=== PATIENT | female | born 1970 | race American Indian/Alaskan Native ===

== ENCOUNTER 2020-09-15 09:03 | Outpatient (CLI) | payer BC ==
--- NOTE | 2020-09-15 10:11 | Mammography Report ---
DIGITAL SCREENING MAMMOGRAM WITH TOMOSYNTHESIS WITH CAD, 09/15/2020 CLINICAL INFORMATION / INDICATION: Routine Screening Mammography. TECHNIQUE: Digital bilateral 2D and 3D mammography with tomosynthesis was obtained in the craniocaud al and mediolateral oblique projections. Computer-Aided Detection (CAD) analysis was used for interp retation of this study. COMPARISON: 01/21/2019 and 04/17/17. FINDINGS: Breast Density: The breasts are heterogeneously dense, which may obscure small masses. No dominant mass, suspicious calcifications, or architectural distortion in either breast. There are a few benign-appearing calcifications bilaterally. A single right biopsy clip and 2 left bi opsy clips are again noted. No new abnormality is seen. IMPRESSION: No mammographic evidence of malignancy. Follow up recommendation: Routine yearly BI-RADS Category 2: Benign. A "normal" or negative report should not discourage follow up or biopsy of a clinically significant f inding. A written summary of these findings will be mailed to the patient. The patient will be entered into a mammography reporting system which will generate a reminder letter for the patient's next appointmen t at the appropriate interval. The [employer] recommends yearly mammograms starting at age 40 and continuing as l abhi as a woman is in good health. Breast MRI is recommended for women with an approximate 20-25% or greater lifetime risk of breast cancer, including women with a strong family history of breast or ova noreen cancer or who have been treated for Hodgkin's disease. Signer Name: Pantera Bashir MD Signed: 09/15/2020 10:06 AM Workstation Name: [id number]
== END 2020-09-15 09:04 | disposition home or self-care (01) ==
LOC: SPVWC 09:03
PROVIDERS: ATTEND Surgery
DX: Z12.31 Encounter for screening mammogram for malignant neoplasm of breast (principal)
CPT/HCPCS: 77063; 77067

== ENCOUNTER 2021-02-15 06:50 | Inpatient (IN) | payer BC ==
[2021-02-15 08:18] LABS: Basophils # (Auto) 0.1 K/mm3 (0.0-0.1); Basophils % (Auto) 0.7 % (0.0-1.8); Hematocrit 43.1 % (30.3-42.9); Hemoglobin 14.4 gm/dl (10.1-14.3); Mean Corpuscular HGB Conc 34 % (30-34); Mean Corpuscular Volume 93 fl (79-97); Monocytes # (Auto) 0.6 K/mm3 (0.0-0.8); Monocytes % (Auto) 3.7 % (0.0-7.3); Platelet Count 288 K/mm3 (140-440); Red Blood Count 4.61 M/mm3 (3.65-5.03); Red Cell Distribution Width 13.4 % (13.2-15.2)
[2021-02-15 08:36] LABS: Alanine Aminotransferase 16 units/L (7-56); Albumin 5.1 g/dL (3.9-5); Blood Urea Nitrogen 14 mg/dL (7-17); Calcium 9.8 mg/dL (8.4-10.2); Hemolysis Index 24
[2021-02-15 08:38] LABS: BUN/Creatinine Ratio 20
[2021-02-15] MEDS ORDERED: DICYCLOMINE 20 MG TAB PO ONE (08:47)
[2021-02-15] MEDS ORDERED: MORPHINE 4 MG/1 ML INJ IV ONE (08:47)
[2021-02-15] MEDS ORDERED: ONDANSETRON 4 MG/2 ML INJ IV ONE (08:47)
[2021-02-15] MEDS ORDERED: SODIUM CHLORIDE 0.9% 1000 ML 1,000 ML IV ONE (08:47)
[2021-02-15] MEDS ORDERED: PIPERACIL/TAZOBACTA 4.5/NS 100 4.5 GM/100 ML VIAL IV ONE (10:47)
[2021-02-15] MEDS ORDERED: HYDROmorphone 1 MG/1 ML INJ IV ONE ×2 (11:13→12:20)
[2021-02-15 11:27] LABS: Bilirubin,Urine NEG (Negative); Blood,Urine SM (Negative); Color,Urine Yellow (Yellow); Mucus,Urine FEW /HPF; Urobilinogen,Urine < 2.0 mg/dL (<2.0)
[2021-02-15] MEDS ORDERED: ACETAMINOPHEN 325 MG TAB PO PRN ×2 (12:24→12:36)
[2021-02-15] MEDS ORDERED: ALBUTEROL 2.5 MG/3 ML NEBU IH PRN (12:24)
[2021-02-15] MEDS ORDERED: MORPHINE 4 MG/1 ML INJ IV PRN (12:24)
[2021-02-15] MEDS ORDERED: ONDANSETRON 4 MG/2 ML INJ IV PRN (12:24)
[2021-02-15] MEDS: metroNIDAZOLE/NS 500 MG/100 ML 500 MG/100 ML BAG IV SCH ×2 (14:43→22:36)
[2021-02-15] MEDS ORDERED: PHENOL 1.4% 177 ML BOTTLE MM PRN (15:30)
[2021-02-15] MEDS: D5NS W/KCL 20 MEQ 20 MEQ/1,000 ML BAG IV SCH (22:11)
[2021-02-15] MEDS: HEPARIN 5,000 UNIT/1 ML VIAL SUB-Q SCH (22:11)
[2021-02-15] MEDS: MORPHINE 2 MG/1 ML INJ IV PRN (22:12)
[2021-02-15] MEDS: FAMOTIDINE 20 MG/2 ML INJ IV SCH (22:12)
[2021-02-16] MEDS: MORPHINE 2 MG/1 ML INJ IV PRN ×2 (02:20→08:40)
[2021-02-16] MEDS: HEPARIN 5,000 UNIT/1 ML VIAL SUB-Q SCH ×3 (05:24→21:00)
[2021-02-16] MEDS: metroNIDAZOLE/NS 500 MG/100 ML 500 MG/100 ML BAG IV SCH ×3 (05:24→22:12)
[2021-02-16 06:21] LABS: Basophils % (Auto) 0.1 % (0.0-1.8); Hematocrit 41.1 % (30.3-42.9); Hemoglobin 13.7 gm/dl (10.1-14.3); Lymphocytes # (Auto) 1.1 K/mm3 (1.2-5.4); Lymphocytes % (Auto) 6.8 % (13.4-35.0); Mean Corpuscular HGB Conc 33 % (30-34); Mean Corpuscular Volume 93 fl (79-97); Monocytes # (Auto) 1.1 K/mm3 (0.0-0.8); Monocytes % (Auto) 6.8 % (0.0-7.3); Platelet Count 248 K/mm3 (140-440); Red Blood Count 4.43 M/mm3 (3.65-5.03); Red Cell Distribution Width 13.8 % (13.2-15.2)
[2021-02-16 06:44] LABS: Alanine Aminotransferase 11 units/L (7-56); BUN/Creatinine Ratio 15; Blood Urea Nitrogen 12 mg/dL (7-17); Calcium 8.7 mg/dL (8.4-10.2); Hemolysis Index 2
[2021-02-16] MEDS: FAMOTIDINE 20 MG/2 ML INJ IV SCH ×3 (08:42→21:00)
[2021-02-16] MEDS ORDERED: MORPHINE 2 MG/1 ML INJ IV ONE (11:00)
[2021-02-16] MEDS ORDERED: BUPIVACAINE-EPINEPHRINE/PF 0.25%-1:200,000 (30 ML) VIAL INFILTRATI ONE (12:46)
[2021-02-16] MEDS ORDERED: LIDOCAINE (1%) 10 MG/1 ML VIAL 20 ML MDV ONE (12:46)
[2021-02-16] MEDS ORDERED: propofoL 200 MG/20 ML VIAL IV ONE (12:53)
[2021-02-16] MEDS ORDERED: LIDOCAINE MPF (2%) 20 MG/1 ML VIAL 5 ML ONE (12:53)
[2021-02-16] MEDS ORDERED: fentaNYL 100 MCG/2 ML INJ ONE (12:53)
[2021-02-16] MEDS ORDERED: ROCURONIUM 50 MG/5 ML INJ IV ONE (12:53)
[2021-02-16] MEDS ORDERED: SUCCINYLCHOLINE CHLORIDE 200 MG/10 ML INJ MDV ONE (12:53)
[2021-02-16] MEDS ORDERED: SODIUM CHLORIDE 0.9% IRR 1,500 ML BOTTLE IR ONE ×2 (14:15)
[2021-02-16] MEDS ORDERED: LIDOCAINE (1%) 10 MG/1 ML VIAL 20 ML MDV IR ONE (14:16)
[2021-02-16] MEDS ORDERED: BUPIVACAINE/PF (0.25%) 2.5 MG/ML 30 ML VIAL INFILTRATI ONE (14:17)
[2021-02-16] MEDS ORDERED: dexAMETHasone 20 MG/5 ML VIAL ONE (14:23)
[2021-02-16] MEDS ORDERED: ESMOLOL 100 MG/10 ML INJ IV ONE (14:23)
[2021-02-16] MEDS ORDERED: HYDROmorphone 1 MG/1 ML INJ ONE (14:52)
[2021-02-16] MEDS ORDERED: LACTATED RINGERS 2,000 ML ONE (15:23)
[2021-02-16] MEDS ORDERED: SODIUM CHLORIDE 0.9% 1000 ML 2,000 ML ONE (15:23)
[2021-02-16] MEDS ORDERED: GLYCOPYRROLATE 0.4 MG/2 ML INJ ONE (15:45)
[2021-02-16] MEDS ORDERED: NEOSTIGMINE 10MG/10 ML INJ MDV ONE (15:45)
[2021-02-16] MEDS ORDERED: ONDANSETRON 4 MG/2 ML INJ ONE (15:46)
[2021-02-16] MEDS ORDERED: ONDANSETRON 4 MG/2 ML INJ IV PRN (16:14)
[2021-02-16] MEDS ORDERED: HYDROmorphone 1 MG/1 ML INJ IV PRN (16:14)
[2021-02-16] MEDS: KETOROLAC 30 MG/1 ML INJ IV SCH (17:59)
[2021-02-16] MEDS: HYDROmorphone 1 MG/1 ML INJ IV PRN (20:50)
[2021-02-16] MEDS: D5NS W/KCL 20 MEQ 20 MEQ/1,000 ML BAG IV SCH ×2 (20:55→20:57)
[2021-02-17] MEDS: KETOROLAC 30 MG/1 ML INJ IV SCH ×3 (00:11→17:35)
[2021-02-17] MEDS: HYDROmorphone 1 MG/1 ML INJ IV PRN ×3 (04:51→18:14)
[2021-02-17] MEDS: HEPARIN 5,000 UNIT/1 ML VIAL SUB-Q SCH ×3 (05:11→22:18)
[2021-02-17] MEDS: metroNIDAZOLE/NS 500 MG/100 ML 500 MG/100 ML BAG IV SCH ×3 (05:11→22:19)
[2021-02-17] MEDS: D5W IV SCH ×2 (07:05→22:27)
[2021-02-17] MEDS: POTASSIUM CHLORIDE IV SCH ×2 (07:05→22:27)
[2021-02-17] MEDS: NACL IV SCH ×2 (07:05→22:27)
[2021-02-17 07:52] LABS: BUN/Creatinine Ratio 16; Blood Urea Nitrogen 13 mg/dL (7-17); Calcium 7.7 mg/dL (8.4-10.2); Hemolysis Index 0
[2021-02-17] MEDS: FAMOTIDINE 20 MG/2 ML INJ IV SCH ×2 (10:56→22:18)
[2021-02-17] MEDS ORDERED: SODIUM PHOSPHATE 15 MMOL in SODIUM CHLORIDE 0.9% 250ML 250 ML IV ONE (11:30)
[2021-02-17] MEDS ORDERED: BENZOCAINE/MENTHOL LOZENGE MM PRN (12:00)
[2021-02-17] MEDS: MORPHINE 2 MG/1 ML INJ IV PRN (22:19)
[2021-02-18] MEDS: KETOROLAC 30 MG/1 ML INJ IV SCH ×3 (00:27→17:13)
[2021-02-18] MEDS: HYDROmorphone 1 MG/1 ML INJ IV PRN ×3 (02:29→22:28)
[2021-02-18 04:59] LABS: Hematocrit 32.5 % (30.3-42.9); Mean Corpuscular HGB Conc 34 % (30-34); Mean Corpuscular Volume 94 fl (79-97); Platelet Count 184 K/mm3 (140-440); Red Blood Count 3.46 M/mm3 (3.65-5.03); Red Cell Distribution Width 13.4 % (13.2-15.2)
[2021-02-18 05:13] LABS: BUN/Creatinine Ratio 19; Blood Urea Nitrogen 15 mg/dL (7-17); Calcium 7.6 mg/dL (8.4-10.2); Hemolysis Index 5
[2021-02-18] MEDS: HEPARIN 5,000 UNIT/1 ML VIAL SUB-Q SCH ×3 (05:27→22:25)
[2021-02-18] MEDS: metroNIDAZOLE/NS 500 MG/100 ML 500 MG/100 ML BAG IV SCH ×3 (05:28→22:25)
[2021-02-18] MEDS: FAMOTIDINE 20 MG/2 ML INJ IV SCH ×2 (09:22→22:25)
[2021-02-18] MEDS: D5NS W/KCL 20 MEQ 20 MEQ/1,000 ML BAG IV SCH (14:05)
[2021-02-19] MEDS: KETOROLAC 30 MG/1 ML INJ IV SCH ×3 (01:09→17:23)
[2021-02-19] MEDS: ONDANSETRON 4 MG/2 ML INJ IV PRN ×3 (01:57→15:51)
[2021-02-19] MEDS: HYDROmorphone 1 MG/1 ML INJ IV PRN ×2 (01:57→12:58)
[2021-02-19] MEDS: metroNIDAZOLE/NS 500 MG/100 ML 500 MG/100 ML BAG IV SCH ×3 (05:53→21:41)
[2021-02-19] MEDS: HEPARIN 5,000 UNIT/1 ML VIAL SUB-Q SCH ×3 (05:54→21:42)
[2021-02-19 07:44] LABS: BUN/Creatinine Ratio 21; Blood Urea Nitrogen 17 mg/dL (7-17); Calcium 8.2 mg/dL (8.4-10.2); Hemolysis Index 7
[2021-02-19 07:56] LABS: Eosinophils % (Auto) 0.1 % (0.0-4.3); Hemoglobin 11.2 gm/dl (10.1-14.3); Lymphocytes # (Auto) 1.5 K/mm3 (1.2-5.4); Lymphocytes % (Auto) 16.6 % (13.4-35.0); Mean Corpuscular HGB Conc 34 % (30-34); Mean Corpuscular Volume 94 fl (79-97); Monocytes # (Auto) 0.6 K/mm3 (0.0-0.8); Monocytes % (Auto) 6.6 % (0.0-7.3); Platelet Count 219 K/mm3 (140-440); Red Blood Count 3.53 M/mm3 (3.65-5.03); Red Cell Distribution Width 13.6 % (13.2-15.2)
[2021-02-19] MEDS ORDERED: SODIUM PHOSPHATE 30 MMOL in SODIUM CHLORIDE 0.9% 500 ML 500 ML IV ONE (09:00)
[2021-02-19] MEDS: FAMOTIDINE 20 MG/2 ML INJ IV SCH ×2 (09:01→21:42)
[2021-02-19] MEDS: D5NS W/KCL 20 MEQ 20 MEQ/1,000 ML BAG IV SCH (13:05)
[2021-02-19] MEDS: MORPHINE 2 MG/1 ML INJ IV PRN (21:47)
[2021-02-20] MEDS: KETOROLAC 30 MG/1 ML INJ IV SCH ×3 (00:50→17:35)
[2021-02-20] MEDS: D5NS W/KCL 20 MEQ 20 MEQ/1,000 ML BAG IV SCH ×2 (02:42→17:55)
[2021-02-20] MEDS: MORPHINE 2 MG/1 ML INJ IV PRN ×3 (04:42→21:31)
[2021-02-20] MEDS: HEPARIN 5,000 UNIT/1 ML VIAL SUB-Q SCH ×3 (05:42→21:24)
[2021-02-20] MEDS: metroNIDAZOLE/NS 500 MG/100 ML 500 MG/100 ML BAG IV SCH ×3 (05:42→21:27)
[2021-02-20 06:36] LABS: BUN/Creatinine Ratio 13; Blood Urea Nitrogen 10 mg/dL (7-17); Calcium 7.9 mg/dL (8.4-10.2); Hemolysis Index 2
[2021-02-20] MEDS: FAMOTIDINE 20 MG/2 ML INJ IV SCH ×2 (09:10→21:30)
[2021-02-20] MEDS: POTASSIUM CHLORIDE 10 MEQ 10 MEQ/100 ML BAG IV SCH ×2 (09:10→10:49)
[2021-02-20] MEDS ORDERED: POTASSIUM CHLORIDE 10 MEQ 10 MEQ/100 ML BAG IV SCH (17:30)
[2021-02-21] MEDS: KETOROLAC 30 MG/1 ML INJ IV SCH ×2 (01:00→08:14)
[2021-02-21] MEDS: HYDROmorphone 1 MG/1 ML INJ IV PRN (01:04)
[2021-02-21 05:50] LABS: Blood Urea Nitrogen 7 mg/dL (7-17); Calcium 8.6 mg/dL (8.4-10.2); Hemolysis Index 4
[2021-02-21 05:51] LABS: BUN/Creatinine Ratio 10
[2021-02-21] MEDS: metroNIDAZOLE/NS 500 MG/100 ML 500 MG/100 ML BAG IV SCH ×3 (06:26→21:50)
[2021-02-21] MEDS: HEPARIN 5,000 UNIT/1 ML VIAL SUB-Q SCH ×3 (06:27→21:50)
[2021-02-21] MEDS ORDERED: MAGNESIUM SULFATE 2 GM/50 ML BAG IV ONE ×2 (07:34→13:00)
[2021-02-21] MEDS: FAMOTIDINE 20 MG/2 ML INJ IV SCH ×3 (07:46→21:50)
[2021-02-21] MEDS: POTASSIUM CHLORIDE 10 MEQ 10 MEQ/100 ML BAG IV SCH ×3 (08:13→11:30)
[2021-02-21] MEDS: MORPHINE 2 MG/1 ML INJ IV PRN ×2 (13:54→20:38)
[2021-02-21] MEDS: ONDANSETRON 4 MG/2 ML INJ IV PRN (13:54)
[2021-02-21] MEDS: D5NS W/KCL 20 MEQ 20 MEQ/1,000 ML BAG IV SCH (20:50)
[2021-02-22] MEDS: MORPHINE 2 MG/1 ML INJ IV PRN ×6 (00:38→23:50)
[2021-02-22 04:47] LABS: Hematocrit 34.6 % (30.3-42.9); Hemoglobin 11.8 gm/dl (10.1-14.3); Mean Corpuscular HGB Conc 34 % (30-34); Mean Corpuscular Volume 92 fl (79-97); Platelet Count 272 K/mm3 (140-440); Red Blood Count 3.75 M/mm3 (3.65-5.03); Red Cell Distribution Width 13.5 % (13.2-15.2)
[2021-02-22 05:09] LABS: Blood Urea Nitrogen 7 mg/dL (7-17); Calcium 8.6 mg/dL (8.4-10.2); Hemolysis Index 1
[2021-02-22 05:10] LABS: BUN/Creatinine Ratio 10
[2021-02-22] MEDS: metroNIDAZOLE/NS 500 MG/100 ML 500 MG/100 ML BAG IV SCH (06:15)
[2021-02-22] MEDS: HEPARIN 5,000 UNIT/1 ML VIAL SUB-Q SCH ×3 (06:15→22:03)
[2021-02-22] MEDS: FAMOTIDINE 20 MG/2 ML INJ IV SCH ×2 (09:59→22:03)
[2021-02-22] MEDS: D5NS W/KCL 20 MEQ 20 MEQ/1,000 ML BAG IV SCH ×2 (14:25→23:51)
[2021-02-23] MEDS: HEPARIN 5,000 UNIT/1 ML VIAL SUB-Q SCH ×3 (06:21→21:50)
[2021-02-23] MEDS: MORPHINE 2 MG/1 ML INJ IV PRN ×3 (06:46→21:51)
[2021-02-23 08:54] LABS: Hematocrit 35.5 % (30.3-42.9); Hemoglobin 12.3 gm/dl (10.1-14.3); Mean Corpuscular HGB Conc 35 % (30-34); Mean Corpuscular Volume 92 fl (79-97); Platelet Count 331 K/mm3 (140-440); Red Blood Count 3.87 M/mm3 (3.65-5.03)
[2021-02-23 09:16] LABS: Blood Urea Nitrogen 4 mg/dL (7-17); Calcium 8.6 mg/dL (8.4-10.2); Hemolysis Index 4
[2021-02-23 09:34] LABS: BUN/Creatinine Ratio 7
[2021-02-23] MEDS: FAMOTIDINE 20 MG/2 ML INJ IV SCH ×2 (11:52→21:50)
[2021-02-23] MEDS: D5NS W/KCL 20 MEQ 20 MEQ/1,000 ML BAG IV SCH (17:05)
[2021-02-24] MEDS: D5NS W/KCL 20 MEQ 20 MEQ/1,000 ML BAG IV SCH (05:43)
[2021-02-24] MEDS: HEPARIN 5,000 UNIT/1 ML VIAL SUB-Q SCH ×2 (05:45→14:52)
[2021-02-24] MEDS: FAMOTIDINE 20 MG/2 ML INJ IV SCH (10:03)
[2021-02-24 12:37] VITALS: BP 123/53
== END 2021-02-24 16:32 | disposition home or self-care (01) | DRG 330 ==
LOC: ED 06:50 → 3A 12:24 → 3B-SURG 14:16
PROVIDERS: ADMIT Internal Medicine; ATTEND Internal Medicine
PROC: 0D9670Z Drainage of Stomach with Drainage Device, Via Natural or Artificial Opening (ICD-10-PCS; 2021-02-15)
PROC: 0DB80ZZ Excision of Small Intestine, Open Approach (ICD-10-PCS; principal; 2021-02-16)
PROC: 0DJD4ZZ Inspection of Lower Intestinal Tract, Percutaneous Endoscopic Approach (ICD-10-PCS; 2021-02-16)
PROC: 0DN80ZZ Release Small Intestine, Open Approach (ICD-10-PCS; 2021-02-16)
DX: K56.50 Intestinal adhesions [bands], unspecified as to partial versus complete obstruction (principal); R65.10 Systemic inflammatory response syndrome (SIRS) of non-infectious origin without acute organ dysfunction; A09 Infectious gastroenteritis and colitis, unspecified; R18.8 Other ascites; K44.9 Diaphragmatic hernia without obstruction or gangrene; K56.7 Ileus, unspecified; K21.9 Gastro-esophageal reflux disease without esophagitis; E87.6 Hypokalemia; F17.210 Nicotine dependence, cigarettes, uncomplicated; Z88.5 Allergy status to narcotic agent; Z88.8 Allergy status to other drugs, medicaments and biological substances; Z90.711 Acquired absence of uterus with remaining cervical stump; Z82.49 Family history of ischemic heart disease and other diseases of the circulatory system
CPT/HCPCS: 36415; 71045; 74018; 74022; 74177; 80048; 80053; 81001; 83690; 83735; 84100; 84132; 85025; 85027; 88307; 96365; 96375; 96376; G0378; J0330; J1100; J1170; J1644; J1885; J1956; J2270; J2405; J2543; J2704; J2710; J3010; J3475; J3480; J7030; J7040; J7042; J7050; J7120; Q9967